=== PATIENT | female | born 2000 | race Caucasian/White ===

== ENCOUNTER 2020-05-12 14:45 | Day surgery (SDCO) | payer OTHER ==
[~2020-05-12] VITALS: Ht 172.7 cm; Wt 154.2 kg
[~2020-05-12 14:45] MED LIST: ATARAX25 MG PO; BACLOFEN 20MG T20 MG PO; HYDROCODON-ACE1 EAC4 PO; IBUPROFEN800 MG PO; MEDROL 4MG DOSEP4 MG PO; NAPROXEN500 MG PO; ONDANSETRON ODT4 MG SL; PRILOSEC20 MG PO; PROTONIX 40MG T40 MG PO; ZOFRAN8 MG PO
[2020-05-12 16:03] LABS: BILIRUBIN NEGATIVE (NEGATIVE); BLOOD NEGATIVE Ery/uL (NEGATIVE); CLARITY CLEAR (CLEAR); COLOR YELLOW (YELLOW); GLUCOSE (U) NORMAL (NORMAL); LEUKOCYTES TRACE Leu/uL (NEGATIVE); NITRITE NEGATIVE (NEGATIVE); PROTEIN NEGATIVE (NEGATIVE); UROBILINOGEN 0.2 mg/dL (0.2-1.0)
[2020-05-12 16:14] LABS: BASOPHIL 0.5 % (0-2); EOSINOPHIL 1.4 % (0-5); HCT 38.5 % (37.0-47.0); HGB 11.4 g/dl (12.5-16.0); MCH 23.6 pg (25.0-31.0); MCHC 29.6 g/dL (32.0-36.0); MCV 79.5 fL (78.0-100.0); MONOCYTE 7.6 % (0-12); MPV 9.7 fL (6.0-9.5); NEUTROPHIL 77.1 % (41-80); NRBC 0; PLT 581 K/uL (150-400); RBC 4.84 M/uL (4.20-5.40); RDW 15.1 % (11.5-14.0); WBC 12.9 K/uL (4.0-10.5)
[2020-05-12 16:17] LABS: BACTERIA TRACE; SQUAMOUS EPITHELIAL CELLS RARE; URINARY WBC RARE
[2020-05-12 16:31] LABS: ALBUMIN 3.3 g/dL (3.4-5.0); BILIRUBIN - TOTAL 0.3 mg/dL (0.2-1.0); BUN/CREAT RATIO (CALC) 18.2 RATIO; CREATININE 0.55 mg/dL (0.51-0.95); POTASSIUM 4.5 mmol/L (3.5-5.1); TOTAL PROTEIN 8.3 g/dL (6.4-8.2)
[2020-05-13 00:08] LABS: HCG (URINE) SCREEN NEGATIVE (NEGATIVE)
[2020-05-13] MEDS ORDERED: TUMS200 MG PO (02:50)
[2020-05-13] MEDS ORDERED: MELATONIN5 M2 PO (02:51)
[2020-05-13 04:30] LABS: BASOPHIL 0.7 % (0-2); EOSINOPHIL 2.5 % (0-5); HCT 33.8 % (37.0-47.0); LYMPHOCYTE 22.8 % (15-48); MCH 23.9 pg (25.0-31.0); MCHC 29.6 g/dL (32.0-36.0); MCV 80.9 fL (78.0-100.0); MONOCYTE 11.4 % (0-12); MPV 9.8 fL (6.0-9.5); NEUTROPHIL 62.2 % (41-80); NRBC 0; PLT 476 K/uL (150-400); RBC 4.18 M/uL (4.20-5.40); RDW 15.2 % (11.5-14.0); WBC 9.6 K/uL (4.0-10.5)
[2020-05-13 04:41] LABS: BUN/CREAT RATIO (CALC) 18.5 RATIO; CREATININE 0.65 mg/dL (0.51-0.95); POTASSIUM 3.8 mmol/L (3.5-5.1)
[2020-05-13] MEDS ORDERED: LEVAQUIN500 MG PO (12:42)
[2020-05-13] MEDS ORDERED: MOTRIN600 MG PO (12:49)
== END 2020-05-13 14:45 | disposition home health service (06) ==
LOC: FER 14:45 → FMS 19:30
PROVIDERS: Nurse Practitioner; Nurse Practitioner Family; ADMIT Internal Medicine
DX: N30.00 Acute cystitis without hematuria (principal); R10.2 Pelvic and perineal pain; N83.202 Unspecified ovarian cyst, left side; U07.1 COVID-19; F17.290 Nicotine dependence, other tobacco product, uncomplicated; E66.01 Morbid (severe) obesity due to excess calories; Z68.43 Body mass index [BMI] 50.0-59.9, adult; Z79.899 Other long term (current) drug therapy; Z88.1 Allergy status to other antibiotic agents; Z91.018 Allergy to other foods
CPT/HCPCS: 36415; 80048; 80053; 81001; 84295; 84300; 84443; 84703; 85025; 87088; G0378; J1885; J7030; Q9967; U0002

== ENCOUNTER 2020-09-11 17:30 | Emergency (ER) | payer OTHER ==
[~2020-09-11 17:30] MED LIST changes: +LEVAQUIN500 MG PO; +MELATONIN5 M2 PO; +MOTRIN600 MG PO; +TUMS200 MG PO
[2020-09-11] MEDS ORDERED: SUDAFED30 MG PO (19:48)
[2020-09-11] MEDS ORDERED: TRIMOX250 MG/5 M PO (19:48)
[2020-09-11] MEDS ORDERED: FLONASE ALLER15.8 ML (19:48)
== END 2020-09-11 20:00 | disposition home or self-care (01) ==
LOC: FER 17:30
DX: H65.91 Unspecified nonsuppurative otitis media, right ear (principal); J02.9 Acute pharyngitis, unspecified; F17.290 Nicotine dependence, other tobacco product, uncomplicated
CPT/HCPCS: 99282; J1100

== ENCOUNTER 2020-10-15 21:22 | Emergency (ER) | payer OTHER ==
[~2020-10-15 21:22] MED LIST changes: +FLONASE ALLER15.8 ML; +SUDAFED30 MG PO; +TRIMOX250 MG/5 M PO
[2020-10-16] MEDS ORDERED: ATIVAN0.5 MG PO (01:33)
== END 2020-10-16 01:44 | disposition home or self-care (01) ==
LOC: FER 21:22
DX: T63.481A Toxic effect of venom of other arthropod, accidental (unintentional), initial encounter (principal); E66.9 Obesity, unspecified
CPT/HCPCS: J1200; J2060; J7030

== ENCOUNTER 2020-10-22 11:15 | Emergency (ER) | payer OTHER ==
[~2020-10-22 11:15] MED LIST changes: +ATIVAN0.5 MG PO
[2020-10-22] MEDS ORDERED: NAPROXEN500 MG PO (14:17)
[2020-10-22] MEDS ORDERED: ROBAXIN750 MG PO (14:17)
== END 2020-10-22 14:55 | disposition home or self-care (01) ==
LOC: FER 11:15
DX: S70.02XA Contusion of left hip, initial encounter (principal); F17.290 Nicotine dependence, other tobacco product, uncomplicated; W18.2XXA Fall in (into) shower or empty bathtub, initial encounter
CPT/HCPCS: 73502

== ENCOUNTER 2020-11-23 18:38 | Emergency (ER) | payer OTHER ==
[~2020-11-23 18:38] MED LIST changes: +ROBAXIN750 MG PO
== END 2020-11-23 22:11 | disposition home or self-care (01) ==
LOC: FER 18:38
DX: T19.2XXA Foreign body in vulva and vagina, initial encounter (principal); F17.290 Nicotine dependence, other tobacco product, uncomplicated; Z88.1 Allergy status to other antibiotic agents; X58.XXXA Exposure to other specified factors, initial encounter
CPT/HCPCS: 99283

== ENCOUNTER 2021-02-01 21:41 | Emergency (ER) | payer OTHER ==
[2021-02-02 00:01] LABS: BASOPHIL 0.4 % (0-2); EOSINOPHIL 1.1 % (0-5); HCT 39.7 % (37.0-47.0); HGB 11.7 g/dl (12.5-16.0); LYMPHOCYTE 14.2 % (15-48); MCH 22.8 pg (25.0-31.0); MCHC 29.5 g/dL (32.0-36.0); MCV 77.2 fL (78.0-100.0); MONOCYTE 8.1 % (0-12); MPV 9.9 fL (6.0-9.5); NEUTROPHIL 75.8 % (41-80); NRBC 0; PLT 553 K/uL (150-400); RBC 5.14 M/uL (4.20-5.40); RDW 15.8 % (11.5-14.0); WBC 13.9 K/uL (4.0-10.5)
[2021-02-02 00:24] LABS: ALBUMIN 3.8 g/dL (3.4-5.0); BILIRUBIN - TOTAL 0.2 mg/dL (0.2-1.0); BUN/CREAT RATIO (CALC) 14.5 RATIO; CREATININE 0.76 mg/dL (0.51-0.95); GLOBULIN (CALCULATION) 4.3 g/dL; POTASSIUM 3.8 mmol/L (3.5-5.1); TOTAL PROTEIN 8.1 g/dL (6.4-8.2)
[2021-02-02 03:22] LABS: BILIRUBIN NEGATIVE (NEGATIVE); BLOOD NEGATIVE Ery/uL (NEGATIVE); CLARITY CLEAR (CLEAR); COLOR YELLOW (YELLOW); GLUCOSE (U) NORMAL (NORMAL); LEUKOCYTES NEGATIVE Leu/uL (NEGATIVE); NITRITE NEGATIVE (NEGATIVE); PROTEIN NEGATIVE (NEGATIVE); SPECIFIC GRAVITY <=1.005 (1.001-1.030); UROBILINOGEN 0.2 mg/dL (0.2-1.0); pH 5.5 (5.0-9.0)
[2021-02-04 00:09] LABS: CHLAMYDIA TRACHOMATIS, NAA Negative (Negative); NEISSERIA GONORRHOEAE, NAA Negative (Negative)
== END 2021-02-02 03:28 | disposition home or self-care (01) ==
LOC: FER 21:41
PROVIDERS: Emergency Medicine
DX: N83.201 Unspecified ovarian cyst, right side (principal)
CPT/HCPCS: 36415; 80053; 81003; 84702; 85025; 86900; 86901; 87210; 87491; 87591; J1170; J1885; J2405; J7030; Q9967

== ENCOUNTER 2021-06-18 09:32 | Emergency (ER) | payer OTHER ==
[2021-06-18 14:08] LABS: BASOPHIL 0.6 % (0-2); HGB 12.3 g/dl (12.5-16.0); LYMPHOCYTE 15.7 % (15-48); MCH 24.1 pg (25.0-31.0); MCHC 30.8 g/dL (32.0-36.0); MCV 78.3 fL (78.0-100.0); MONOCYTE 7.4 % (0-12); MPV 9.4 fL (6.0-9.5); NEUTROPHIL 74.9 % (41-80); NRBC 0; PLT 535 K/uL (150-400); RBC 5.11 M/uL (4.20-5.40); RDW 17.2 % (11.5-14.0); WBC 13.1 K/uL (4.0-10.5)
[2021-06-18 14:12] LABS: BILIRUBIN NEGATIVE (NEGATIVE); BLOOD 3+ Ery/uL (NEGATIVE); CLARITY HAZY (CLEAR); COLOR YELLOW (YELLOW); GLUCOSE (U) NORMAL (NORMAL); LEUKOCYTES 2+ Leu/uL (NEGATIVE); NITRITE NEGATIVE (NEGATIVE); PROTEIN NEGATIVE (NEGATIVE); SPECIFIC GRAVITY 1.025 (1.001-1.030); UROBILINOGEN 0.2 mg/dL (0.2-1.0); pH 5.5 (5.0-9.0)
[2021-06-18 14:17] LABS: AMORPHOUS URATES CRYSTALS MODERATE; BACTERIA 3+; SQUAMOUS EPITHELIAL CELLS 20-50; URINARY RBC RARE
[2021-06-18 14:22] LABS: ALBUMIN 3.8 g/dL (3.4-5.0); BILIRUBIN - TOTAL 0.2 mg/dL (0.2-1.0); BUN/CREAT RATIO (CALC) 12.9 RATIO; CREATININE 0.62 mg/dL (0.51-0.95); GLOBULIN (CALCULATION) 4.5 g/dL; TOTAL PROTEIN 8.3 g/dL (6.4-8.2)
[2021-06-18] MEDS ORDERED: MACROBID 100 M100 MG PO (16:18)
== END 2021-06-18 16:46 | disposition home or self-care (01) ==
LOC: FER 09:32
PROVIDERS: Physician Assistant
DX: N39.0 Urinary tract infection, site not specified (principal); F17.290 Nicotine dependence, other tobacco product, uncomplicated; Z88.1 Allergy status to other antibiotic agents; Z91.018 Allergy to other foods
CPT/HCPCS: 36415; 80053; 81001; 85025; 87088

== ENCOUNTER 2021-09-15 01:12 | Emergency (ER) | payer OTHER ==
[~2021-09-15 01:12] MED LIST changes: +MACROBID 100 M100 MG PO
[2021-09-15] MEDS ORDERED: CYCLOBENZAPRINE10 MG PO (05:20)
[2021-09-15] MEDS ORDERED: NORCO 5-325 TA1 EACH PO (05:20)
== END 2021-09-15 05:55 | disposition home or self-care (01) ==
LOC: FER 01:12
DX: M54.50 Low back pain, unspecified (principal); M25.572 Pain in left ankle and joints of left foot; F17.290 Nicotine dependence, other tobacco product, uncomplicated; V40.5XXA Car driver injured in collision with pedestrian or animal in traffic accident, initial encounter
CPT/HCPCS: 71250; 72125; 72128; 72131; 73610; J1885

== ENCOUNTER 2021-09-30 12:56 | Emergency (ER) | payer OTHER ==
[~2021-09-30 12:56] MED LIST changes: +CYCLOBENZAPRINE10 MG PO; +NORCO 5-325 TA1 EACH PO
[2021-09-30 13:38] LABS: BILIRUBIN NEGATIVE (NEGATIVE); BLOOD NEGATIVE Ery/uL (NEGATIVE); CLARITY CLOUDY (CLEAR); COLOR YELLOW (YELLOW); GLUCOSE (U) NORMAL (NORMAL); LEUKOCYTES 2+ Leu/uL (NEGATIVE); NITRITE NEGATIVE (NEGATIVE); PROTEIN NEGATIVE (NEGATIVE); SPECIFIC GRAVITY 1.025 (1.001-1.030); UROBILINOGEN 0.2 mg/dL (0.2-1.0)
[2021-09-30 13:59] LABS: BACTERIA 3+; MUCOUS TRACE; URINARY RBC RARE
[2021-09-30] MEDS ORDERED: BACTRIM DS TAB1 EACH PO (14:16)
== END 2021-09-30 14:23 | disposition home or self-care (01) ==
LOC: FER 12:56
PROVIDERS: Nurse Practitioner Family
DX: B37.2 Candidiasis of skin and nail (principal); N39.0 Urinary tract infection, site not specified; F17.290 Nicotine dependence, other tobacco product, uncomplicated; Z91.018 Allergy to other foods; Z88.1 Allergy status to other antibiotic agents
CPT/HCPCS: 81001; 87088; 99283